=== PATIENT | female | born 1970 | race American Indian/Alaskan Native ===

== ENCOUNTER 2016-09-07 16:46 | Outpatient (CLI) | payer OTHER ==
--- NOTE | 2016-09-08 08:14 | XRay Report ---
CHEST TWO VIEWS: 09/07/16 16:46:00 CLINICAL: Positive PPD. COMPARISON: None FINDINGS: The heart is normal size with a left ventricular contour. Normal pulmonary vessels. The lungs are normally expanded and clear.The bones and soft tissues are unremarkable. IMPRESSION: No evidence of acute or chronic TB. No acute cardiopulmonary process. Hypertensive changes in the heart.
== END 2016-09-07 16:47 | disposition home or self-care (01) ==
LOC: XRAY 16:46
PROVIDERS: ATTEND Internal Medicine
DX: R76.11 Nonspecific reaction to tuberculin skin test without active tuberculosis (principal); I10 Essential (primary) hypertension
CPT/HCPCS: 71020